=== PATIENT | male | born 1980 | race Caucasian/White ===

== ENCOUNTER 2023-01-18 22:10 | Emergency (ER) | payer OTHER, SELFPAY ==
[2023-01-18 22:19] VITALS: BP 150/95; PULSE 75; RESP 18; TEMP 36.4; O2SAT 96; BMI 31.8
[2023-01-18 22:23] VITALS: BP 141/92; PULSE 66; RESP 16; O2SAT 99
[2023-01-18] MEDS: sodium chloride 0.9% 1,000 ML 999 ML IV ×2 (22:56→23:27)
[2023-01-18 22:57] LABS: Basophils # 0.1 10^3/uL (0.0-0.1); Basophils % 0.8 %; Eosinophils # 0.1 10^3/uL (0.0-0.8); Eosinophils % 1.5 %; Hemoglobin 15.8 g/dL (11.7-16.6); Lymphocytes # 2.1 10^3/uL (0.8-4.8); Mean Corpuscular HGB Conc 33.6 g/dL (30.0-36.0); Mean Corpuscular Hemoglobin 30.7 pg (28.0-34.0); Mean Corpuscular Volume 91.3 fl (80-94); Mean Platelet Volume 8.7 fL (7.4-10.4); Monocytes # 0.6 10^3/uL (0.2-0.9); Monocytes % 8.5 %; Neutrophils # 3.85 10^3/uL (1.8-7.7); Nucleated Red Blood Cells % 0 %; Platelet Count 273 10^3/cmm (130-400); Red Blood Count 5.15 10^6/uL (4.1-5.3); Red Cell Distribution Width 12.9 % (12.1-15.1); White Blood Count 6.6 10^3/uL (4.0-10.0)
--- NOTE | 2023-01-18 23:01 | CTR_ITS ---
PROCEDURE INFORMATION: Exam: CT Abdomen And Pelvis Without Contrast Exam date and time: 01/18/2023 11:08 PM Age: 42 years old Clinical indication: Abdominal pain; Flank; Left; Prior surgery; Surgery date: 6+ months; Surgery type: Ureteral stent and removal of; Additional info: L flank pain TECHNIQUE: Imaging protocol: Computed tomography of the abdomen and pelvis without contrast. Radiation optimization: All CT scans at this facility use at least one of these dose optimization techniques: automated exposure control; mA and/or kV adjustment per patient size (includes targeted exams where dose is matched to clinical indication); or iterative reconstruction. REPORTING DATA: Count of CT and Cardiac NM exams in prior 12 months: This patient has received 0 known CTs and 0 known cardiac nuclear medicine studies in the 12 months prior to the current study. COMPARISON: No relevant prior studies available. RADIATION DOSE METRICS: Total DLP (mGy-cm): 988.6 FINDINGS: Liver: Normal. No mass. Gallbladder and bile ducts: Normal. No calcified stones. No ductal dilation. Pancreas: Normal. No ductal dilation. Spleen: Normal. No splenomegaly. Adrenal glands: Normal. No mass. Kidneys and ureters: Bilateral nonobstructing renal calyceal stones. 6 mm left UVJ stone with mild left hydronephrosis. Stomach and bowel: Unremarkable. No obstruction. No mucosal thickening. Appendix: No evidence of appendicitis. Intraperitoneal space: Unremarkable. No free air. No significant fluid collection. Vasculature: Unremarkable. No abdominal aortic aneurysm. Lymph nodes: Unremarkable. No enlarged lymph nodes. Urinary bladder: Unremarkable as visualized. Reproductive: Unremarkable as visualized. Bones/joints: Unremarkable. No acute fracture. Soft tissues: Unremarkable. CT/CT kidney stone 23619 IMPRESSION: 6 mm left UVJ stone with mild left hydronephrosis.
[2023-01-18] MEDS: ondansetron 2 mg/ML SDV 2 mL 4 MG IVP (23:02)
[2023-01-18] MEDS: HYDROmorphone 1 mg/mL INJ 1 mL IVP (23:03)
--- NOTE | 2023-01-18 23:07 | W.ED.ABDPA2 ---
HPI - Abdominal Pain General: Chief Complaint: Abdominal Pain Stated Complaint: left back pain Time Seen by Provider: 01/18/23 22:31 Source: patient Mode of arrival: ambulatory Limitations: no limitations History of Present Illness: 42-year-old male states he had a history of kidney stones past he been having severe left-sided flank pain today. He states the pain is very sharp in nature its been a 10 out of 10 its worst currently an 8 out of 10 he states he had nausea and vomiting from the pain. Denies any dysuria denies any worsening improving factors to his pain states he feels that the pain is just deep inside like his previous kidney stones. States he had large stones in the past and has had lithotripsy multiple times Associated Symptoms: Reports nausea and vomiting; Denies chills, diarrhea, dysuria and fever(s) Review of Systems Const: Denies: fever(s), chills, body aches or change in appetite ENMT: Denies: throat pain or dental pain Card: Denies: chest pain Resp: Denies: dyspnea GI: Reports: nausea and vomiting; Denies: abdominal pain or diarrhea : Reports: flank pain; Denies: dysuria Musc: Denies: neck pain or back pain Skin/Breast: Denies: rash Neuro: Denies: headache(s) PFSH ED PFSH: Medical History Kidney stone Social History Substance/Drug Use: never Physical Exam Const: COMMON NORMALS: no acute distress, patient oriented x3 and healthy appearing HENMT: COMMON NORMALS: normocephalic and atraumatic HEAD & SCALP: normocephalic and atraumatic Eye: COMMON NORMALS: conjunctivae normal CONJUNCTIVA: Yes conjunctivae normal Neck/C-Spine: COMMON NORMALS: full ROM and supple Chest: COMMONS NORMALS: normal inspection of the chest and normal palpation of entire chest wall Resp: COMMON NORMALS: normal respiratory effort, No retractions, No use of accessory muscles and clear to auscultation bilaterally AUSCULTATION: clear to auscultation bilaterally Cardio: COMMON NORMALS: regular rate, regular rhythm and No murmurs present (Cardio) RATE: regular rate RHYTHM: regular rhythm GI: COMMON NORMALS: Normal to inspection, nondistended, normoactive bowel sounds present, Soft to palpation, non-tender and no masses PALPATION: Yes Soft to palpation Extremity: COMMON NORMALS: normal to inspection and full ROM Neuro: COMMON NORMALS: patient oriented x3, moves all extremities and no focal motor deficits Psych: COMMON NORMALS: mental status grossly normal, Normal thought process present and cooperative THOUGHT PROCESS: Normal thought process present Skin: COMMON NORMALS: no rashes or lesions noted and no wounds GENERAL SKIN EXAM: no rashes or lesions noted Course Vital Signs: Vital signs: Vital Signs Temperature 97.5 F L 01/18/23 22:19 Pulse Rate 66 01/18/23 22:23 Respiratory Rate 16 01/18/23 22:23 Blood Pressure 141/92 01/18/23 22: Pulse Oximetry 99 01/18/23 22:23 MDM - Abdominal Pain Medical Decision Making Patient presents here with a kidney stone UA shows a likely infection nitrite positive urine. I did speak to the urologist at [facility] he wants patient transferred ER to ER I did talk to ER physician there. I did speak to patient he refused ambulance ride he is going POV. He given antibiotics here. Medical Records I reviewed the patient's medical records. Lab Data I reviewed the patient's lab results. 01/18/23 22:45 01/18/23 22:45 Labs/Radiology: Radiology Impressions Abdomen/Pelvis CT 01/18/23 23:01 IMPRESSION: 6 mm left UVJ stone with mild left hydronephrosis. Laboratory Results WBC 6.6 10^3/uL (4.0-10.0) 01/18/23 22:45 RBC 5.15 10^6/uL (4.1-5.3) 01/18/23 22:45 Hgb 15.8 g/dL (11.7-16.6) 01/18/23 22:45 Hct 47.0 % (42.0-52.0) 01/18/23 22:45 MCV 91.3 fl (80-94) 01/18/23 22:45 MCH 30.7 pg (28.0-34.0) 01/18/23 22:45 MCHC 33.6 g/dL (30.0-36.0) 01/18/23 22:45 RDW 12.9 % (12.1-15.1) 01/18/23 22:45 Plt Count 273 10^3/cmm (130-400) 01/18/23 22:45 MPV 8.7 fL (7.4-10.4) 01/18/23 22:45 Neut % (Auto) 58.0 % 01/18/23 22:45 Lymph % (Auto) 31.0 % 01/18/23 22:45 [place] % (Auto) 8.5 % 01/18/23 22:45 Eos % (Auto) 1.5 % 01/18/23 22:45 Baso % (Auto) 0.8 % 01/18/23 22:45 Neut # (Auto) 3.85 10^3/uL (1.8-7.7) 01/18/23 22:45 Lymph # (Auto) 2.1 10^3/uL (0.8-4.8) 01/18/23 22:45 [place] # (Auto) 0.6 10^3/uL (0.2-0.9) 01/18/23 22:45 Eos # (Auto) 0.1 10^3/uL (0.0-0.8) 01/18/23 22:45 Baso # (Auto) 0.1 10^3/uL (0.0-0.1) 01/18/23 22:45 Nucleated RBC % (auto) 0 % 01/18/23 22:45 Nucleated RBCs # 0.0 /100WBC 01/18/23 22:45 Sodium 139 mmol/L (136-145) 01/18/23 22:45 Potassium 3.7 mmol/L (3.5-5.1) 01/18/23 22:45 Chloride 104 mmol/L (98-107) 01/18/23 22:45 Carbon Dioxide 23 mmol/L (22-29) 01/18/23 22:45 Anion Gap 15.7 (5-19) 01/18/23 22:45 BUN 17 mg/dL (6-20) 01/18/23 22:45 Creatinine 0.9 mg/dL (0.7-1.2) 01/18/23 22:45 GFR Calculation 92.5 mL/min (90-130) 01/18/23 22:45 Glucose 110 mg/dL (65-115) 01/18/23 22:45 Calculated Osmolality 290 mOsm/kg (285-295) 01/18/23 22:45 Calcium 9.3 mg/dL (8.5-10.5) 01/18/23 22:45 Total Bilirubin 0.4 mg/dL (0.15-1.2) 01/18/23 22:45 AST 27 U/L (0-40) 01/18/23 22:45 ALT 44 U/L (0-41) H 01/18/23 22:45 Alkaline Phosphatase 67 U/L (40-130) 01/18/23 22:45 Total Protein 7.0 g/dL (6.6-8.7) 01/18/23 22:45 Albumin 4.5 g/dL (3.5-5.2) 01/18/23 22:45 Globulin 2.5 g/dL (1.3-4.6) 01/18/23 22:45 Lipase 40 U/L (13-60) 01/18/23 22:45 Urine Color Inga (Yellow) 01/18/23 22:36 Urine Appearance Cloudy (CLEAR) A 01/18/23 22:36 Urine pH 5 (5-7) 01/18/23 22:36 Ur Specific [place] 1.030 (1.005-1.030) 01/18/23 22:36 Urine Protein 3+ (Negative) H 01/18/23 22:36 Urine Glucose (UA) Norm (Normal) 01/18/23 22:36 Urine Ketones 1+ (Negative) H 01/18/23 22:36 Urine Blood 3+ (Negative) H 01/18/23 22:36 Urine Nitrate Positive (Negative) H 01/18/23 22:36 Urine Bilirubin 1+ (Negative) H 01/18/23 22:36 Urine Urobilinogen 1 mg/dL (Negative) H 01/18/23 22:36 Ur Leukocyte Esterase 1+ (Negative) H 01/18/23 22:36 Urine RBC >100 /hpf (0-2) H 01/18/23 22:36 Urine WBC 0-4 /hpf (0-5) H 01/18/23 22:36 Ur Squamous Epith Cells None /hpf (0-5) 01/18/23 22:36 Calcium Oxalate Crystal 15-25 /hpf H 01/18/23 22:36 Amorphous Sediment Not Reportable 01/18/23 22:36 Urine Bacteria 1+ /hpf (NONE) H 01/18/23 22:36 Urine Yeast 2+ /hpf H 01/18/23 22:36 Discharge Plan Discharge Patient Disposition: Xfer Short-Term Hosp Clinical Impression: Kidney stone, Acute cystitis Referrals: Panda Da Silva [Primary Care Provider] - Coding Level of Care Code ED Customer Service Cashier for Anjel Caruso
[2023-01-18 23:18] LABS: Alanine Aminotransferase 44 U/L (0-41); Albumin Level 4.5 g/dL (3.5-5.2); Alkaline Phosphatase 67 U/L (40-130); Anion Gap 15.7 (5-19); Aspartate Amino Transferase 27 U/L (0-40); Blood Urea Nitrogen 17 mg/dL (6-20); Calcium 9.3 mg/dL (8.5-10.5); Carbon Dioxide 23 mmol/L (22-29); Chloride 104 mmol/L (98-107); Globulin 2.5 g/dL (1.3-4.6); Glomerular Filtration Rate 92.5 mL/min (90-130); Glucose 110 mg/dL (65-115); Lipase 40 U/L (13-60); Osmolality Calculated 290 mOsm/kg (285-295); Potassium 3.7 mmol/L (3.5-5.1); Sodium 139 mmol/L (136-145); Total Bilirubin 0.4 mg/dL (0.15-1.2)
[2023-01-18 23:44] LABS: Urine Appearance Cloudy (CLEAR); Urine Color Amber (Yellow); pH Urine 5 (5-7)
[2023-01-18 23:45] LABS: Add Urine Microscopic? YES; Bilirubin Urine 1+ (Negative); Blood Urine 3+ (Negative); Glucose Urine UA Norm (Normal); Ketones Urine 1+ (Negative); Leukocyte Esterase Urine 1+ (Negative); Nitrate Urine Positive (Negative); Protein Urine 3+ (Negative); Urobilinogen Urine 1 mg/dL (Negative)
[2023-01-18 23:47] LABS: RBC Urine >100 /hpf (0-2)
[2023-01-18 23:48] LABS: Bacteria Urine 1+ /hpf; WBC Urine 0-4 /hpf (0-5)
[2023-01-18 23:56] LABS: Add Urine Culture? Yes; Calcium Oxalate Crystals Urine 15-25 /hpf
[2023-01-19 00:23] VITALS: BP 138/90; PULSE 80; RESP 14
[2023-01-19] MEDS: cefTRIAXone 1,000 MG in sodium chloride 0.9% (plus) 50 ML 100 MG IV (00:24)
[2023-01-19] MEDS: HYDROmorphone 1 mg/mL INJ 1 mL IVP (00:39)
[2023-01-19 01:06] VITALS: BP 142/88; PULSE 79; RESP 16; O2SAT 94
== END 2023-01-19 01:07 | disposition short-term general hospital (02) ==
PROVIDERS: Emergency Provider Emergency Medicine; PCP Internal Medicine
DX: N20.0 Calculus of kidney (principal); Z87.442 Personal history of urinary calculi; N30.90 Cystitis, unspecified without hematuria
CPT/HCPCS: 36415; 74176; 80053; 81001; 83690; 85025; 87086; 96361; 96374; 96375; 96376; 99285; J0696; J1170; J2405; J7030